=== PATIENT | female | born 1985 | race Caucasian/White ===

== ENCOUNTER 2021-02-01 22:17 | Emergency (ER) | payer OTHER ==
[2021-02-02] MEDS ORDERED: ASPIRIN CHEWABL81 MG PO (01:35)
[2021-02-02] MEDS ORDERED: DECADRON6 MG PO (01:35)
== END 2021-02-02 01:45 | disposition home or self-care (01) ==
LOC: ER1 22:17
DX: U07.1 COVID-19 (principal); E03.9 Hypothyroidism, unspecified
CPT/HCPCS: 71045; 81001; 84703; 87086; 99283; U0002

== ENCOUNTER 2021-02-11 17:34 | Emergency (ER) | payer OTHER ==
[~2021-02-11 17:34] MED LIST: ASPIRIN CHEWABL81 MG PO; DECADRON6 MG PO
== END 2021-02-11 19:11 | disposition home or self-care (01) ==
LOC: ER1 17:34
DX: N39.0 Urinary tract infection, site not specified (principal); Z87.442 Personal history of urinary calculi
CPT/HCPCS: 99283